=== PATIENT | male | born 1990 | race Caucasian/White ===

== ENCOUNTER 2018-08-30 23:22 | Emergency (ER) | payer MEDICAID ==
[2018-08-30 23:47] VITALS: RESP 18
[2018-08-31] MEDS ORDERED: Albuterol-Ipratrop 3 mg / 0.5 (3 ml) UD INH STA (00:30)
[2018-08-31] MEDS ORDERED: Sodium Chloride 0.9% 1,000 ML IV STA (00:31)
--- NOTE | 2018-08-31 00:34 | ED PDOC ---
HPI: General Adult Time Seen by Provider: 08/31/18 00:32 Chief Complaint (Nursing): GI Problem Chief Complaint (Provider): vomiting History Per: Patient (28 y/o male here with multiple complaints but notes vomiting x 6 episodes today. Denies any diarrhea/abd/chest pain. NOtes moderate coughing x 1 week. Was seen in clinic last week and was prescribed cxr but unable to obtain due to insurance. Admits smoking. 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 Tetanus up to date 1 month ago.) Past Medical History Reviewed: Historical Data, Nursing Documentation, Vital Signs Vital Signs: Last Vital Signs Temp Pulse 86 08/30/18 23:44 Resp 18 08/30/18 23:44 BP 146/83 08/30/18 23:44 Pulse Ox 96 08/30/18 23:44 - Family History Family History: States: No Known Family Hx - Home Medications Home Medications: Ambulatory Orders Medication Instructions Recorded Tramadol Hydrochloride [Tramadol] 50 mg PO BID #10 tab 05/11/15 Azithromycin [Zithromax] 250 mg PO DAILY #4 tab 08/31/18 - Allergies Allergies/Adverse Reactions: Allergies Allergy/AdvReac Type Severity Reaction Status Date / Time acetaminophen [From Tylenol] Allergy RASH Verified 08/31/18 00:23 Review of Systems ROS Statement: Except As Marked, All Systems Reviewed And Found Negative Respiratory: Positive for: Cough Gastrointestinal: Positive for: Vomiting Physical Exam - Reviewed Nursing Documentation Reviewed: Yes Vital Signs Reviewed: Yes - Physical Exam Appears: Positive for: Well, Non-toxic, No Acute Distress Head Exam: Positive for: ATRAUMATIC, NORMAL INSPECTION, NORMOCEPHALIC Skin: Positive for: Normal Color, Warm, DRY Eye Exam: Positive for: EOMI, Normal appearance, PERRL ENT: Positive for: Normal ENT Inspection Neck: Positive for: Normal, Painless ROM Cardiovascular/Chest: Positive for: Regular Rate, Rhythm Respiratory: Positive for: Wheezing Gastrointestinal/Abdominal: Positive for: Normal Exam, Soft Back: Positive for: Normal Inspection Extremity: Positive for: Normal ROM, Other (1.5 cm superficial laceration distal tip of right thumb healing) Neurologic/Psych: Positive for: Alert, Oriented - Laboratory Results Result Diagrams: 08/31/18 03:44 08/31/18 03:44 - ECG O2 Sat by Pulse Oximetry: 96 - Progress ED Course And Treament: NS 1 liter wide open pepcid 20 mg iv x 1 dose zofran 4 mg iv x 1 dose cxr: ?hazy infiltrate zithroma 500mg x 1 dose duoneb x 1 ose Disposition - Clinical Impression Clinical Impression: Bronchitis, Gastritis - Patient ED Disposition Is Patient to be Admitted: No - Disposition Referrals: [facility] [place] [Outside] Disposition: Routine/Home Disposition Time: 05:25 Condition: FAIR Prescriptions: Azithromycin [Zithromax] 250 mg PO DAILY #4 tab Instructions: Gastritis, Acute Bronchitis, Adult (DC) Forms: [facility] ED School/Work Excuse
[2018-08-31 03:57] LABS: BASO # 0.2 K/uL (0.0-0.2); BASO % 1.9 % (0.0-2.0); EOS # 1.3 K/uL (0.0-0.7); HEMOGLOBIN 14.1 g/dL (12.0-18.0); LYMPH # 2.9 K/uL (1.0-4.3); LYMPH % 28.3 % (20.0-40.0); MEAN CELL VOLUME 88.2 fl (80.0-94.0); MEAN CORPUSCULAR HEMOGLOBIN 30.3 pg (27.0-31.0); MEAN CORPUSCULAR HGB CONC 34.3 g/dL (33.0-37.0); MEAN PLATELET VOLUME 7.8 fl (7.2-11.7); MONO # 0.7 K/uL (0.0-0.8); MONO % 7.2 % (0.0-10.0); NEUT % 49.6 % (50.0-75.0); NRBC % 0.1 % (0.0-0.0); RBC 4.66 Mil/uL (4.40-5.90); RED CELL DISTRIBUTION WIDTH 13.4 % (11.5-14.5); WHITE BLOOD COUNT 10.1 K/uL (4.8-10.8)
[2018-08-31 04:08] LABS: ALB/GLOB RATIO 1.1 (1.0-2.1); ALBUMIN 3.8 g/dL (3.5-5.0); ALT/SGPT 41 U/L (21-72); AST/SGOT 41 U/L (17-59); BLOOD UREA NITROGEN 19 mg/dl (9-20); CALCIUM 9.2 mg/dL (8.4-10.2); GFR NON-AFRICAN AMERICAN > 60
[2018-08-31] MEDS ORDERED: Albuterol-Ipratrop 3 mg / 0.5 (3 ml) UD ONE (04:09)
[2018-08-31 06:09] VITALS: BP 116/58; PULSE 64; TEMP 97.9; O2SAT 98
--- NOTE | 2018-08-31 08:23 | RAD ---
Date of service: 08/31/2018 HISTORY: cough COMPARISON: No prior. TECHNIQUE: Chest PA and lateral FINDINGS: LUNGS: No active pulmonary disease. PLEURA: No significant pleural effusion identified. No pneumothorax apparent. CARDIOVASCULAR: No atherosclerotic calcification present Normal. OSSEOUS STRUCTURES: No significant abnormalities. VISUALIZED UPPER ABDOMEN: Normal. OTHER FINDINGS: None. IMPRESSION: No active disease.
== END 2018-08-31 06:05 | disposition home or self-care (01) ==
LOC: H.ER 23:22
DX: J40 Bronchitis, not specified as acute or chronic (principal); K29.70 Gastritis, unspecified, without bleeding
CPT/HCPCS: 71046; 80053; 83735; 85025; 94640; 96374; 96375; 99283; J2405; J7030

== ENCOUNTER 2018-09-03 18:07 | Emergency (ER) | payer MEDICAID ==
[2018-09-03] MEDS ORDERED: Albuterol-Ipratrop 3 mg / 0.5 (3 ml) UD IH STA (18:37)
--- NOTE | 2018-09-03 18:40 | ED PDOC ---
HPI: CCC, URI, Sore Throat Time Seen by Provider: 09/03/18 18:37 Chief Complaint (Nursing): Cough, Cold, Congestion History Per: Patient Onset/Duration Of Symptoms: Days (3) Current Symptoms Are (Timing): Still Present Associated Symptoms: Fever, Cough, Sputum, Vomiting Severity: Moderate Additional Complaint(s): Cough productive green sputum assoc with 1 episode vomiting today. Seen here vand Dx'ed with bronchitis and Rx'ed with antibiotics. denies SOB or abd pain. Past Medical History Vital Signs: Last Vital Signs Temp 100.1 F H 09/03/18 18:19 Pulse 100 H 09/03/18 18:19 Resp 16 09/03/18 18:19 BP 111/72 09/03/18 18:19 Pulse Ox 100 09/03/18 18:19 - Medical History PMH: No Chronic Diseases - Family History Family History: States: Unknown Family Hx - Home Medications Home Medications: Ambulatory Orders Medication Instructions Recorded Tramadol Hydrochloride [Tramadol] 50 mg PO BID #10 tab 05/11/15 Azithromycin [Zithromax] 250 mg PO DAILY #4 tab 08/31/18 Albuterol HFA [Ventolin HFA 90 2 puff IH Q4H #1 puff 09/03/18 mcg/actuation (8 g)] Benzonatate [Tessalon Perles] 100 mg PO Q8 #12 sgl 09/03/18 - Allergies Allergies/Adverse Reactions: Allergies Allergy/AdvReac Type Severity Reaction Status Date / Time acetaminophen [From Tylenol] Allergy RASH Verified 08/31/18 00:23 Review of Systems Constitutional: Positive for: Fever Respiratory: Positive for: Cough. Negative for: Shortness of Breath Gastrointestinal: Positive for: Vomiting. Negative for: Abdominal Pain Physical Exam - Reviewed Nursing Documentation Reviewed: Yes Vital Signs Reviewed: Yes - Physical Exam Appears: Positive for: Non-toxic, No Acute Distress Head Exam: Positive for: ATRAUMATIC, NORMAL INSPECTION, NORMOCEPHALIC Skin: Positive for: Normal Color, Warm, DRY Eye Exam: Positive for: EOMI, Normal appearance, PERRL ENT: Positive for: Normal ENT Inspection Neck: Positive for: Normal, Painless ROM Cardiovascular/Chest: Positive for: Regular Rate, Rhythm Respiratory: Positive for: Rhonchi, Wheezing. Negative for: Respiratory Distress Gastrointestinal/Abdominal: Positive for: Normal Exam, Soft Back: Positive for: Normal Inspection Extremity: Positive for: Normal ROM Neurologic/Psych: Positive for: Alert, Oriented - ECG O2 Sat by Pulse Oximetry: 100 - Progress Re-evaluation Time: 18:59 Condition: Improved Disposition - Clinical Impression Clinical Impression: Bronchitis - Patient ED Disposition Is Patient to be Admitted: No - Disposition Referrals: [facility] [Outside] Disposition: Routine/Home Disposition Time: 18:59 Condition: FAIR Prescriptions: Albuterol HFA [Ventolin HFA 90 mcg/actuation (8 g)] 2 puff IH Q4H #1 puff Benzonatate [Tessalon Perles] 100 mg PO Q8 #12 sgl Instructions: Acute Bronchitis Forms: [facility] (Bulgarian)
[2018-09-03] MEDS ORDERED: Albuterol-Ipratrop 3 mg / 0.5 (3 ml) UD ONE (18:55)
[2018-09-03 19:18] VITALS: BP 136/78; PULSE 98; RESP 20; TEMP 99.8; O2SAT 98
== END 2018-09-03 19:22 | disposition home or self-care (01) ==
LOC: H.ER 18:07
DX: J40 Bronchitis, not specified as acute or chronic (principal)

== ENCOUNTER 2018-10-27 11:59 | Emergency (ER) | payer SELFPAY ==
[2018-10-27 12:05] VITALS: BP 136/80; PULSE 90; RESP 18; TEMP 97.4; O2SAT 98
[2018-10-27 12:06] VITALS: BMI 24.3
[2018-10-27] MEDS ORDERED: Albuterol-Ipratrop 3 mg / 0.5 (3 ml) UD INH STA (12:45)
[2018-10-27] MEDS ORDERED: Albuterol-Ipratrop 3 mg / 0.5 (3 ml) UD ONE (12:52)
--- NOTE | 2018-10-27 13:09 | ED PDOC ---
HPI: Influenza Time Seen by Provider: 10/27/18 12:26 Chief Complaint: Cough, Cold, Congestion Chief Complaint (Provider): Cough History Per: Patient Exam Limitations: no limitations Onset/Duration Of Symptoms: Days (5x) Symptoms include: cough, other (whitish/yellow phlegm). denies: fever Additional complaint(s):: 28 year old male with a past medical history of pediatric asthma (no issues for 14x years) presents to the ED for an evaluation of a cough that has been ongoing for 5x days. Patient reports having whitish/yellow phlegm, and needing to cough a lot to get the phlegm out when he feels it. Patient denies having fevers. PMD: None provided Past Medical History Reviewed: Historical Data, Nursing Documentation, Vital Signs Vital Signs: Last Vital Signs Temp 97.4 F L 10/27/18 12:10 Pulse 90 10/27/18 12:10 Resp 18 10/27/18 12:10 BP 136/80 10/27/18 12:10 Pulse Ox 98 10/27/18 12:10 - Medical History PMH: Asthma (childhood) Denies: Chronic Kidney Disease - Surgical History Surgical History: No Surg Hx - Family History Family History: States: No Known Family Hx - Social History Alcohol: None Drugs: Denies - Immunization History Hx Tetanus Toxoid Vaccination: Yes (1 month ago) - Home Medications Home Medications: Ambulatory Orders Medication Instructions Recorded Tramadol Hydrochloride [Tramadol] 50 mg PO BID #10 tab 05/11/15 Azithromycin [Zithromax] 250 mg PO DAILY #4 tab 08/31/18 Albuterol HFA [Ventolin HFA 90 2 puff IH Q4H #1 puff 09/03/18 mcg/actuation (8 g)] Benzonatate [Tessalon Perles] 100 mg PO Q8 #12 sgl 09/03/18 Albuterol HFA [Ventolin HFA 90 1 puff IH BID PRN #1 unit 10/27/18 mcg/actuation (8 g)] Promethazine HCl/Codeine 10 ml PO Q8H PRN #150 ml 10/27/18 [Prometh-Codein 6.25-10 mg/5 ml] - Allergies Allergies/Adverse Reactions: Allergies Allergy/AdvReac Type Severity Reaction Status Date / Time acetaminophen [From Tylenol] Allergy RASH Verified 08/31/18 00:23 Review of Systems ROS Statement: Except As Marked, All Systems Reviewed And Found Negative Constitutional: Negative for: Fever Respiratory: Positive for: Cough (with whitish/yellow phlegm), Sputum Physical Exam - Reviewed Nursing Documentation Reviewed: Yes Vital Signs Reviewed: Yes - Physical Exam Appears: Positive for: Well, Non-toxic, No Acute Distress Head Exam: Positive for: ATRAUMATIC, NORMOCEPHALIC Skin: Positive for: Normal Color, Warm, Dry Cardiovascular/Chest: Positive for: Regular Rate, Rhythm Respiratory: Positive for: Wheezing (diffuse, with rhonchi) Neurologic/Psych: Positive for: Alert, Oriented (3x) Medical Decision Making Medical Decision Makin:26 Initial impression: 28 year old male with a cough. Initial plan: * duoneb 3ml UD 3 ml INH once * peak flow pre post treatment * reevaluation Pt reports feeling better on re-evaluation/ Scribe Attestation: Documented by Camilel Brady, acting as a scribe for Mimi Hale PA-C. Provider Scribe Attestation: All medical record entries made by the Scribe were at my direction and personally dictated by me. I have reviewed the chart and agree that the record accurately reflects my personal performance of the history, physical exam, medical decision making, and the department course for this patient. I have also personally directed, reviewed, and agree with the discharge instructions and disposition. - ECG O2 Sat by Pulse Oximetry: 98 (RA) Pulse Ox Interpretation: Normal Disposition - Clinical Impression Clinical Impression: Acute bronchitis - Patient ED Disposition Is Patient to be Admitted: No Counseled Patient/Family Regarding: Diagnosis, Need For Followup, Rx Given - Disposition Referrals: [facility] [Outside] Disposition: Routine/Home Disposition Time: 13:22 Condition: GOOD Prescriptions: Albuterol HFA [Ventolin HFA 90 mcg/actuation (8 g)] 1 puff IH BID PRN #1 unit PRN Reason: Wheezing Promethazine HCl/Codeine [Prometh-Codein 6.25-10 mg/5 ml] 10 ml PO Q8H PRN #150 ml PRN Reason: Cough Instructions: Acute Bronchitis, Adult (DC) Forms: [employer] (Luxembourgish)
== END 2018-10-27 13:38 | disposition home or self-care (01) ==
LOC: H.ER 11:59
DX: J20.9 Acute bronchitis, unspecified (principal); J45.909 Unspecified asthma, uncomplicated; Z79.899 Other long term (current) drug therapy

== ENCOUNTER 2019-01-04 23:22 | Emergency (ER) | payer MEDICAID ==
[2019-01-04 23:22] VITALS: BMI 24.3
[2019-01-04 23:38] VITALS: BP 125/80; PULSE 90; TEMP 97.4; O2SAT 95
[2019-01-05] MEDS ORDERED: Albuterol-Ipratrop 3 mg / 0.5 (3 ml) UD INH STA (00:39)
[2019-01-05 01:00] VITALS: RESP 19
--- NOTE | 2019-01-05 01:21 | ED PDOC ---
HPI: SOB/CHF/COPD Time Seen by Provider: 01/05/19 00:38 Chief Complaint (Nursing): Shortness Of Breath Chief Complaint (Provider): Shortness Of Breath History Per: Patient History/Exam Limitations: no limitations Onset/Duration Of Symptoms: Days (x1 week) Associated Symptoms: Fever Additional Complaint(s): 28 year old male with history of substance abuse and asthma presents to the ED complaining of shortness of breath and wheezing for x1 day. Patient reports his metered dose inhaler is not active. He reports a dry cough but denies any fever or chills. Past Medical History Reviewed: Historical Data, Nursing Documentation, Vital Signs Vital Signs: Last Vital Signs Temp 97.4 F L 01/04/19 23:37 Pulse 90 01/04/19 23:37 Resp 19 01/05/19 00:48 BP 125/80 01/04/19 23:37 Pulse Ox 95 01/04/19 23:37 - Medical History PMH: Asthma (childhood) Denies: Diabetes, Hepatitis, HIV, HTN, Chronic Kidney Disease, Seizures, Sexually Transmitted Disease - Surgical History Surgical History: No Surg Hx - Family History Family History: States: Unknown Family Hx - Social History Current smoker - smoking cessation education provided: Yes Alcohol: Other (Alcohol abuse) Drugs: Opiates - Immunization History Hx Tetanus Toxoid Vaccination: No Hx Influenza Vaccination: No Hx Pneumococcal Vaccination: No - Home Medications Home Medications: Ambulatory Orders Medication Instructions Recorded Albuterol HFA [Ventolin HFA 90 2 puff IH Q4H #1 puff 09/03/18 mcg/actuation (8 g)] Mirtazapine [Remeron] 15 mg PO HS #30 tab 12/25/18 traZODone [Desyrel] 50 mg PO HS PRN #30 tab 12/25/18 Albuterol Sulfate [Proair Hfa] 0.09 mg IH Q6 PRN #1 inh 01/05/19 predniSONE [predniSONE Tab] 60 mg PO QAM #12 tab 01/05/19 - Allergies Allergies/Adverse Reactions: Allergies Allergy/AdvReac Type Severity Reaction Status Date / Time acetaminophen [From Tylenol] Allergy RASH Verified 01/04/19 23:28 Review of Systems ROS Statement: Except As Marked, All Systems Reviewed And Found Negative Constitutional: Negative for: Fever, Chills Respiratory: Positive for: Cough, Shortness of Breath, Wheezing Physical Exam - Reviewed Nursing Documentation Reviewed: Yes Vital Signs Reviewed: Yes - Physical Exam Appears: Positive for: Well, Non-toxic, No Acute Distress Head Exam: Positive for: ATRAUMATIC, NORMAL INSPECTION, NORMOCEPHALIC Skin: Positive for: Normal Color, Warm, DRY Eye Exam: Positive for: EOMI, Normal appearance, PERRL ENT: Positive for: Normal ENT Inspection Neck: Positive for: Normal, Painless ROM Cardiovascular/Chest: Positive for: Regular Rate, Rhythm. Negative for: Murmur Respiratory: Positive for: Wheezing (bilateral expiratory ). Negative for: Respiratory Distress Gastrointestinal/Abdominal: Positive for: Normal Exam, Soft. Negative for: Tenderness Back: Positive for: Normal Inspection Extremity: Positive for: Normal ROM. Negative for: Pedal Edema, Deformity Neurologic/Psych: Positive for: Alert, Oriented. Negative for: Motor/Sensory Deficits - ECG O2 Sat by Pulse Oximetry: 95 (RA) Pulse Ox Interpretation: Normal Medical Decision Making Medical Decision Making: Time: 00:39 Initial Impression: 28 y/o with mild asthma exacerbation Initial Plan: * Prednisone * Duonebs 02:58 Patient reports improvement of symptoms and is stable for discharge. Diagnosis is COPD exacerbation. Scribe Attestation: Documented by Thomas Santos acting as a scribe for Christiano Barr MD. Provider Scribe Attestation: All medical record entries made by the Scribe were at my direction and personally dictated by me. I have reviewed the chart and agree that the record accurately reflects my personal performance of the history, physical exam, medical decision making, and the department course for this patient. I have also personally directed, reviewed, and agree with the discharge instructions and disposition. Disposition - Clinical Impression Clinical Impression: Asthma exacerbation - Patient ED Disposition Is Patient to be Admitted: No - Disposition Disposition: Routine/Home Disposition Time: 02:58 Condition: IMPROVED Additional Instructions: TOSHA QUEZADA, thank you for letting us take care of you today. Your provider was Christiano Barr MD and you were treated for SOB. The emergency medical care you received today was directed at your acute symptoms. If you were prescribed any medication, please fill it and take as directed. It may take several days for your symptoms to resolve. Return to the Emergency Department if your symptoms worsen, do not improve, or if you have any other problems. Please contact your doctor or call one of the physicians/clinics you have been referred to that are listed on the Patient Visit Information form that is included in your discharge packet. Bring any paperwork you were given at discharge with you along with any medications you are taking to your follow up visit. Our treatment cannot replace ongoing medical care by a primary care provider outside of the emergency department. Thank you for allowing the [facility] team to be part of your care today. If you had an X-Ray or CT scan: A Radiologist will review the ED reading if any change in treatment is needed we will contact you. If you had a blood, urine, or wound culture: It will take several days for the results, if any change in treatment is needed we will contact you. If you had an STI test: It will take 48 hours for the results. Please call after 1 week if you have not heard back. Prescriptions: Albuterol Sulfate [Proair Hfa] 0.09 mg IH Q6 PRN #1 inh PRN Reason: Shortness Of Breath predniSONE [predniSONE Tab] 60 mg PO QAM #12 tab Instructions: Asthma in Adults, Avoiding Asthma Triggers Forms: [employer] ([place] Arabian)
--- NOTE | 2019-01-05 08:57 | CARD ---
APPROVED REPORT Date of service: 01/04/2019 EKG Measurement Heart [id number] <Conclusion> Normal sinus rhythm Normal ECG
== END 2019-01-05 03:28 | disposition home or self-care (01) ==
LOC: H.ER 23:22
DX: J45.901 Unspecified asthma with (acute) exacerbation (principal); F17.200 Nicotine dependence, unspecified, uncomplicated; J44.1 Chronic obstructive pulmonary disease with (acute) exacerbation; Z79.899 Other long term (current) drug therapy; Z88.6 Allergy status to analgesic agent